=== PATIENT | female | born 1965 | race Caucasian/White ===

== ENCOUNTER 2018-06-12 19:49 | Inpatient (IN) | payer MEDICARE, MEDICAID ==
[~2018-06-12] VITALS: Ht 165.1 cm; Wt 99.5 kg
[2018-06-12] MEDS ORDERED: ALDACTONE25 MG PO (20:55)
[2018-06-12] MEDS ORDERED: LEVOTHYROXINE100 MCG PO (20:55)
[2018-06-12] MEDS ORDERED: LAMICTAL25 MG PO (20:57)
[2018-06-12] MEDS ORDERED: PRISTIQ50 MG PO (20:57)
[2018-06-12] MEDS ORDERED: BUMETANIDE0.5 MG PO (20:58)
[2018-06-12] MEDS ORDERED: MOBIC7.5 MG PO (20:59)
[2018-06-12] MEDS ORDERED: PROTONIX40 MG PO (21:01)
[2018-06-12] MEDS ORDERED: K-TAB10 MEQ PO (21:01)
[2018-06-12] MEDS ORDERED: CETIRIZINE HCL5 M1 PO (21:02)
[2018-06-12] MEDS ORDERED: CENTRUM SILVER1 EAC3 PO (21:03)
[2018-06-12] MEDS ORDERED: SENNA LAXATIVE8.6 MG PO (21:03)
[2018-06-12 21:09] VITALS: BP 95/70
--- NOTE | 2018-06-12 22:44 | NUR ---
PAGED SANG PLAYGROUND MONITOR [phone] . RETURNED PAGE [phone]. NO ORDERS GIVEN.
--- NOTE | 2018-06-12 23:50 | NUR ---
WAS TO TO CALL DR. CONTRERAS CELLPHONE PER HIS CALL SERVICE. NEW ORDERS GIVEN.
[2018-06-13 00:49] VITALS: BP 95/70; BMI 34.1
--- NOTE | 2018-06-13 02:58 | NUR ---
PATIENT RESTING COMFORTABLY IN BED. RESPIRATIONS ARE EVEN AND UNLABORED. SCD ARE ON. FAMILY AT BED. NO S/S OF DISTRESS. PATIENT C/O LEG CRAMPS. PATIENT GIVEN WARM PACKS. NO FURTHER COMPLAINTS. CALL LIGHT WITHIN REACH. WILL CPOC.
[2018-06-13 04:00] VITALS: BP 96/63
[2018-06-13 05:34] LABS: BASOPHILS 0.2 % (0-2); EOSINOPHILS 0.8 % (0-7); HEMATOCRIT 39.7 % (36.0-48.0); HEMOGLOBIN 12.9 g/dL (12-16); IMMATURE GRANULOCYTES 0.6 % (0-5); MCH 29.5 pg (26.0-34.0); MCHC 32.5 g/dL (31.0-37.0); MCV 90.8 fL (80.0-100.0); MEAN PLATELET VOLUME 11.4 fL (7.4-10.4); NEUTROPHILS 73.4 % (40-80); RBC 4.37 10x6/uL (4.00-5.40); RDW 18.2 % (11.5-14.5); WBC 14.8 10x3/uL (4.8-10.8)
[2018-06-13 05:52] LABS: INR 1.73 (0.85-1.17); PROTIME 19.6 SECONDS (11.6-15.0)
[2018-06-13 06:08] LABS: ALBUMIN 3.2 g/dL (3.4-5.0); ANION GAP 18.9 mmol/L (8-16); BILIRUBIN - TOTAL 1.25 mg/dL (0.2-1.3); CALCIUM 9.1 mg/dL (8.5-10.1); CARBON DIOXIDE 22.9 mmol/L (21.0-32.0); CREATININE - SERUM 1.6 mg/dL (0.6-1.3); POTASSIUM - SERUM 4.8 mmol/L (3.5-5.1); PROTEIN - SERUM 6.7 g/dL (6.4-8.2)
[2018-06-13 07:01] LABS: PLATELET COUNT 40 10x3/uL (130-400)
--- NOTE | 2018-06-13 08:59 | NUR ---
CALLED PHARMACY REQUESTING PTS MORNING MEDICATION THAT IS NOT FOUND IN [facility]. PT SITTING UP IN BED EATING BREAKFAST. SHIFT ASSESSMENT COMPLETED. PT IS A&O AND DENIES ANY CURRENT PAIN OR NEEDS. NOTIFIED PRIMARY ABOUT CRITICAL LAB VALUES AND THEY ARE AWARE. NO NEW ORDERS. WILL CTM.
[2018-06-13 09:00] VITALS: BP 98/70
--- NOTE | 2018-06-13 10:15 | NUR ---
PT INQUIRING ABOUT HOME MEDICATIONS. PAGED PRIMARY AND MADE SURE MED REC WAS COMPLETED AND DONE CORRECTLY. PT WAITING ON THEM TO REVIEW THEN MEDS CAN BE RESTARTED. NO CURRENT NEEDS. PT RESTING QUIETLY WITH FAMILY AT BEDSIDE. WILL CTM.
--- NOTE | 2018-06-13 13:04 | NUR ---
CLAMPED OFF LUNA TO DO URINE CULTURE VIA LUNA CATH PER ORDERS. PT SITTING UP IN BED EATING LUNCH. NO CURRENT NEEDS. WILL CTM.
[2018-06-13 14:05] LABS: MAGNESIUM - SERUM 2.1 mg/dL (1.8-2.4); T4 THYROXIN - FREE 1.23 ng/dL (0.76-1.46); THYROID STIMULATING HORMONE 9.96 uIU/mL (0.36-3.74)
[2018-06-13 14:06] LABS: CKMB 9.1 U/L (0.0-3.6); CREATINE KINASE 266 UL (21-215)
[2018-06-13 14:10] LABS: TROPONIN-I 0.063 ng/mL (0.000-0.060)
--- NOTE | 2018-06-13 14:23 | NUR ---
LAB CALLED ELEVATED TROPONIN. NOTIFIED PRIMARY AND THEY STATE TO MAKE SURE CARDIOLOGY IS AWARE AND CARDIOLOGY IS AND WILL SEE PT REGARDING CONSULT. ECHO HAS BEEN ORDERED AND DONE. PT RESTING QUIETLY. NO CURRENT NEEDS. WILL CTM.
[2018-06-13 14:42] VITALS: BMI 34.1
--- NOTE | 2018-06-13 14:44 | NUR ---
UA AND CULTURE COLLECTED USING PORT OFF LUNA PER ORDER USING CLEAN TECHNIQUE. SENT TO LAB ORDERED. PT TOOK HER FIRST DOSE OF LACTULOSE ORDERED AND SWALLOWED WITHOUT ANY DIFFICULTIES. NO CURRENT NEEDS. WILL CTM.
--- NOTE | 2018-06-13 15:01 | NUR ---
ORDER FOR ABDOMEN COMPLETE AT 1500 / PT NOT NPO PER FAMILY / TOLD NOT TO EAT OR DRINK AFTER MIDNIGHT / NURSE INFORMED STUDY WILL BE DONE AM. ERIN CHUNG
--- NOTE | 2018-06-13 15:05 | NUR ---
ULTRASOUND CALLS AND STATES ABDOMEN US WILL BE DONE IN THE AM SINCE PT HAS ALREADY EATEN LUNCH TODAY AND WILL NEED TO BE NPO AT LEAST 6HRS. PT VERBALIZED UNDERSTANDING AND WILL CTM.
[2018-06-13 15:34] LABS: APPEARANCE CLEAR (CLEAR); BILIRUBIN NEGATIVE (NEGATIVE); COLOR YELLOW (YELLOW); GLUCOSE NEGATIVE (NEGATIVE); KETONE NEGATIVE (NEGATIVE); NITRITE NEGATIVE (NEGATIVE); PROTEIN TRACE mg/dL (NEGATIVE); SPECIFIC GRAVITY 1.015 (1.005-1.020); UROBILINOGEN NORMAL (NORMAL)
[2018-06-13 15:35] LABS: BACTERIA MODERATE /hpf (NONE SEEN); EPITHELIAL CELLS 0-5 /hpf (0-5)
[2018-06-13 16:56] LABS: BASOPHILS 0.2 % (0-2); EOSINOPHILS 1.3 % (0-7); HEMATOCRIT 37.1 % (36.0-48.0); HEMOGLOBIN 12.3 g/dL (12-16); IMMATURE GRANULOCYTES 0.6 % (0-5); MCH 30.1 pg (26.0-34.0); MCHC 33.2 g/dL (31.0-37.0); MCV 90.9 fL (80.0-100.0); MEAN PLATELET VOLUME 11.4 fL (7.4-10.4); NEUTROPHILS 70.9 % (40-80); RBC 4.08 10x6/uL (4.00-5.40); RDW 18.7 % (11.5-14.5); WBC 15.1 10x3/uL (4.8-10.8)
--- NOTE | 2018-06-13 17:00 | NUR ---
PTS LUNA DOESNT APPEAR TO HAVE MUCH URINE EXPECTED WITH LASIX ETC. PT STATES SHE DOES FEEL THE URGE TO VOID SO I PERFORMED A BLADDER SCAN AND IT REVEALED 380ML. REMOVED OLD LUNA IT CLEARLY ISNT WORKING. BULB TIP FULLY INTACT. NEW 16FR LUNA INSERTED USING STERILE TECHNIQUE. IMMEDIATE RETURN OF 100ML NOTED UNSURE WHY THE REST DID NOT BUT WILL CONTINUE TO MONITER FOR RETENTION.
[2018-06-13 17:03] LABS: ANION GAP 16.2 mmol/L (8-16); CREATININE - SERUM 1.8 mg/dL (0.6-1.3); POTASSIUM - SERUM 4.2 mmol/L (3.5-5.1)
[2018-06-13 17:36] LABS: PLATELET COUNT 134 10x3/uL (130-400)
--- NOTE | 2018-06-13 18:37 | NUR ---
PT HAS VITAMIN K INFUSION DUE. PAGED PHARMACY AND THEY STATE THEY WILL BRING IT UP SOON.
[2018-06-13 18:44] VITALS: BP 104/74
[2018-06-13 20:00] VITALS: BP 95/63
--- NOTE | 2018-06-13 20:14 | NUR ---
RESUMING PATIENT CARE. PATIENT RESTING COMFORTABLY IN BED. RESPIRATIONS ARE EVEN AND UNLABORED. NO S/S OF DISTRESS. NO C/O PAIN. CALL LIGHT WITHIN REACH. SISTER AT BEDSIDE. LAMAR (SISTER) WAS EXTREMELY ANXIOUS. LAMAR IS STATING SHE DOESN'T UNDERSTANDING WHATS HAPPENING. SHE DOESN'T UNDERSTAND WHAT THE DOCTORS ARE TRYING TO EXPLAIN TO HER, BECAUSE THEY ARE USING BIG WORDS. POLoki IS WRITING A LIST OF QUESTIONS AND CONCERNS DOWN IN HOPES TO GET A BETTER EXPLANATION. WILL CPOC.
[2018-06-13 21:52] LABS: CKMB 8.8 U/L (0.0-3.6); CREATINE KINASE 230 UL (21-215); TROPONIN-I 0.053 ng/mL (0.000-0.060)
[2018-06-13 21:58] LABS: CKMB 8.8 U/L (0.0-3.6)
[2018-06-14] VITALS (7 sets, daily range): BP systolic 101–157; BP diastolic 53–79
[2018-06-14 04:37] LABS: BASOPHILS 0.1 % (0-2); EOSINOPHILS 1.1 % (0-7); HEMATOCRIT 37.5 % (36.0-48.0); HEMOGLOBIN 12.4 g/dL (12-16); IMMATURE GRANULOCYTES 0.5 % (0-5); LYMPHOCYTES 16.4 % (15-50); MCH 30.2 pg (26.0-34.0); MCHC 33.1 g/dL (31.0-37.0); MCV 91.5 fL (80.0-100.0); MONOCYTES 11.1 % (2-11); NEUTROPHILS 70.8 % (40-80); PLATELET COUNT 134 10x3/uL (130-400); WBC 13.9 10x3/uL (4.8-10.8)
[2018-06-14 04:45] LABS: INR 1.75 (0.85-1.17); PROTIME 19.8 SECONDS (11.6-15.0)
[2018-06-14 05:00] LABS: % SATURATION 14 % (15-55); IRON 42 ug/dl (35-150); TOTAL IRON BIND CAPACITY 298 ug/dl (260-445); UNSAT IRON BIND CAPACITY 256 ug/dl (150-375)
[2018-06-14 05:07] LABS: ALBUMIN 3.3 g/dL (3.4-5.0); ANION GAP 17.7 mmol/L (8-16); BILIRUBIN - TOTAL 1.17 mg/dL (0.2-1.3); CARBON DIOXIDE 24.2 mmol/L (21.0-32.0); CKMB 7.1 U/L (0.0-3.6); CREATININE - SERUM 1.6 mg/dL (0.6-1.3); POTASSIUM - SERUM 3.9 mmol/L (3.5-5.1); TROPONIN-I 0.046 ng/mL (0.000-0.060)
--- NOTE | 2018-06-14 05:50 | NUR ---
CRITICAL AMMONIA LEVEL OF 98 CALLED TO FLOOR . PHYSICIAN NOT NOTIFIED HE IS AWARE AND TREATING CONDITION.
--- NOTE | 2018-06-14 08:47 | NUR ---
AM ROUNDS COMPLETED. INTRODUCED MYSELF TO PT PRIMARY RN FOR TODAYS SHIFT. PT IS A&O SITTING UP IN BED. PT IS VERY NAUSEATED SO I PROVIDED HER WITH PIV ZOFRAN AND A COLD RAG TO HER HEAD. PT VOICED THANKS. PTS AMMONIA IS UP TO 98 TODAY. NOTIFIED PRIMARY AND THEY WILL ADDRESS IT. NO CHANGE IN LOC NOTED WITH THE INCREASE HOWEVER PT IS MENTALLY CHALLENGED SO ITS SOMEWHAT IMPAIRED ASSESSMENT. I WAS GOING TO PROVIDE PT WITH MORNING MEDICATIONS SO SHE CAN CONTINUE HER LACTULOSE EVEN THOUGH SHE IS NPO FOR CARDIAC CATH HOWEVER R/T THE NAUSEA WILL HOLD OFF FOR NOW. PT HAS CONSENTS OBTAINED AND IN CHART HOWEVER NIGHTSHIFT DID NOT DO PREP OR BATH SO I WILL NOTIFY MY COURSE DEVELOPER AND MAKE SURE IT GETS DONE PRIOR TO HEART CATH. PT VERBALIZED UNDERSTANDING AND IS RESTING QUIETLY AT THIS TIME. LUNA CATHETER DRAINING CLEAR YELLOW URINE TO GRAVITY OFF R.SIDE OF BED, STAT LOCK SECURED TO R.INNER THIGH. SISTER AT BEDSIDE. NO CURRENT NEEDS. CL IN REACH, BED IN LOWEST, SIDE RAILS X2 AND BUILT IN BED ALARM ON. WILL CTM.
--- NOTE | 2018-06-14 10:46 | NUR ---
AT BEDSIDE AND ROUNDING STATING THAT THE HEART CATH IS CANCELLED R/T HER COAGULATION ISSUES AND LIVER PROBLEMS RIGHT NOW. IF HEART CATH IS INDICATED NEEDED CAN PERFORM AT A LATER TIME. PT VOICED UNDERSTANDING AND I PROVIDED HER WITH HER MEDICATIONS ORDERED. DIET TRAY HAS BEEN ORDERED. PT IS SLIGHTLY DELAYED SO I WILL UPDATE SISTER HER POA WHEN SHE RETURNS. NO CURRENT NEEDS. WILL CTM.
--- NOTE | 2018-06-14 12:39 | NUR ---
Nutrition follow-up: Diet: low sodium NPO now for heart cath PO intake has been ~70% average of meals Labs reviewed +BM Wt: 203# RDN following.
--- NOTE | 2018-06-14 17:45 | NUR ---
LACTULOSE ENEMA PERFORMED ORDERED. PT IS CURRENTLY LYING ON HER LEFT SIDE AND IS GOING TO TRY AND HOLD IT IN FOR 30-45MINS. SISTER AT BEDSIDE VISITING. PT IS VERY MUCH AWAKE NOW AND STATES SHE IS FEELING ALRIGHT JUST BEEN "DROWSY" TODAY. NO CURRENT NEEDS WILL CTM.
--- NOTE | 2018-06-14 19:33 | NUR ---
PT FINALLY HAD RESULTS FROM ENEMA AND HAD MODERATE AMOUNT OF LOOSE STOOL BROWN IN COLOR. COMPLETE BED CHANGE PROVIDED AND NOTICED SLIGHTLY REDDENED BOTTOM, DISCUSSED WITH PRIMARY AND WILL HAVE CALMOSEPTINE ORDERED TO HELP PREVENT BREAKDOWN. PT SITTING UP IN BED FINALLY ATE A LITTLE BIT OF SOMETHING. DENIES ANY CURRENT PAIN OR NEEDS. WILL PASS ON IN REPORT.
--- NOTE | 2018-06-15 02:00 | NUR ---
LACTULOSE ENEMA ADMINISTERED. PATIENT HAD MODERATE RESULTS.
[2018-06-15 04:00] VITALS: BP 97/66
[2018-06-15 04:09] LABS: INR 1.68 (0.85-1.17); PROTIME 19.2 SECONDS (11.6-15.0)
[2018-06-15 04:24] LABS: BASOPHILS 0.1 % (0-2); HEMATOCRIT 35.8 % (36.0-48.0); HEMOGLOBIN 11.5 g/dL (12-16); IMMATURE GRANULOCYTES 0.4 % (0-5); MCH 29.7 pg (26.0-34.0); MCHC 32.1 g/dL (31.0-37.0); MCV 92.5 fL (80.0-100.0); MEAN PLATELET VOLUME 11.2 fL (7.4-10.4); MONOCYTES 11.1 % (2-11); NEUTROPHILS 72.4 % (40-80); PLATELET COUNT 118 10x3/uL (130-400); RBC 3.87 10x6/uL (4.00-5.40); RDW 19.3 % (11.5-14.5); WBC 13.7 10x3/uL (4.8-10.8)
[2018-06-15 04:26] LABS: ANION GAP 15.5 mmol/L (8-16); CALCIUM 8.4 mg/dL (8.5-10.1); CARBON DIOXIDE 24.2 mmol/L (21.0-32.0); CREATININE - SERUM 1.4 mg/dL (0.6-1.3); POTASSIUM - SERUM 3.7 mmol/L (3.5-5.1); PROTEIN - SERUM 6.6 g/dL (6.4-8.2)
--- NOTE | 2018-06-15 04:55 | NUR ---
CRITICAL AMMONIA LEVEL OF 55 CALLED TO UNIT. PHYSICAN WAS NOT NOTIFIED HE IS AWARE ELEVATED AMMONIA LEVEL AND IS TREATING.
--- NOTE | 2018-06-15 07:32 | NUR ---
RESTING QUIETLY NAD NOTED
[2018-06-15 08:19] LABS: HEPATITIS C ANTIBODY <0.1 S/CO RAT (0.0-0.9)
[2018-06-15 09:26] VITALS: BP 113/85
[2018-06-15 10:18] LABS: ALPHA FETOPROTEIN -(TUMOR MRK) 2.4 ng/mL (0.0-8.3)
[2018-06-15 11:17] LABS: ANA REFLEX - DIRECT Negative (Negative)
[2018-06-15 19:59] VITALS: BP 91/60
--- NOTE | 2018-06-15 20:13 | NUR ---
RESUMING PATIENT CARE. PATIENT IS RESTING COMFORTABLY IN BED. RESPIRATIONS ARE EVEN AND UNLABORED. PATIENT VERBALIZED NO NEEDS AT THIS TIME. PATIENT BOARD UPDATED. CALL LIGHT WITHIN REACH. FAMILY AT BEDSIDE. WILL CPOC
[2018-06-15 23:45] VITALS: BP 124/78
--- NOTE | 2018-06-16 01:41 | NUR ---
PATIENT CALLED VENDING MANAGER LIGHT, PATIENT NEEDED TO BE CHANGED. PATIENT HAD A LARGE BM.
[2018-06-16 03:55] VITALS: BP 99/72
--- NOTE | 2018-06-16 04:23 | NUR ---
PATIENT APPEARS TO BE SLEEPING. RESPIRATIONS ARE EVEN AND UNLABORED. NO S/S OF DISTRESS. CALL LIGHT WITHIN REACH. FAMILY AT BEDSIDE. WILL CPOC.
[2018-06-16 04:48] LABS: BASOPHILS 0.1 % (0-2); EOSINOPHILS 2.5 % (0-7); HEMATOCRIT 36.4 % (36.0-48.0); HEMOGLOBIN 11.9 g/dL (12-16); IMMATURE GRANULOCYTES 0.3 % (0-5); LYMPHOCYTES 11.7 % (15-50); MCH 30.3 pg (26.0-34.0); MCHC 32.7 g/dL (31.0-37.0); MCV 92.6 fL (80.0-100.0); MEAN PLATELET VOLUME 10.5 fL (7.4-10.4); MONOCYTES 9.2 % (2-11); NEUTROPHILS 76.2 % (40-80); PLATELET COUNT 108 10x3/uL (130-400); RBC 3.93 10x6/uL (4.00-5.40); RDW 19.3 % (11.5-14.5); WBC 11.5 10x3/uL (4.8-10.8)
[2018-06-16 05:05] LABS: BILIRUBIN - TOTAL 1.2 mg/dL (0.2-1.3); CALCIUM 8.6 mg/dL (8.5-10.1); CREATININE - SERUM 1.1 mg/dL (0.6-1.3); INR 1.55 (0.85-1.17); PROTEIN - SERUM 6.6 g/dL (6.4-8.2)
[2018-06-16 05:12] LABS: ANION GAP 11.6 mmol/L (8-16); CARBON DIOXIDE 31.4 mmol/L (21.0-32.0)
--- NOTE | 2018-06-16 07:31 | NUR ---
REPORT RECIEVED. WILL CONTINUE WITH POC. PT CURRENTLY LYING SUPINE. CALL LIGHT W/I REACH. FAMILY AT BEDSIDE. SISTER AT BEDSIDE. PT IS CURRENTLY BEING CLEANED BY ROUTE SPECIALIST WHERE PT HAD SMALL BM. LUNA IN PLACE. RR EVEN AND UNLABORED ON RA. R.AC PIV IS SALINE LOCKED. PT IS AA BUT MENTALLY DELAYED AND BEDFAST. WILL CTM.
[2018-06-16 08:15] VITALS: BP 93/59
[2018-06-16] MEDS ORDERED: COREG6.25 MG PO (09:51)
[2018-06-16] MEDS ORDERED: ALBUTEROL2.5 MG/3 M INH (09:52)
--- NOTE | 2018-06-16 10:00 | NUR ---
RESTS WITH EYES CLOSED. CALL LIGHT IN REACH. WILL MONITOR NEEDS.
[2018-06-16 12:51] VITALS: BP 90/53
--- NOTE | 2018-06-16 12:55 | NUR ---
SPOKE WITH ABOUT STARTING DOBUTREX DRIP. RECIEVED ORDERS FOR DRIP @5MCG/KG/MIN. PLACED ORDER. NOTIFIED.
[2018-06-16 16:14] VITALS: BP 107/60
--- NOTE | 2018-06-16 19:20 | NUR ---
RECEIVED REPORT, WILL ASSUME CARE OF PT, DENIES ANY NEEDS, SISTER AT BEDSIDE, BED IS LOW, SRX2, CALL LIGHT IN REACH, WILL CONTINUE PLAN OF CARE
[2018-06-16 19:55] VITALS: BP 97/53
[2018-06-16 23:45] VITALS: BP 99/56
--- NOTE | 2018-06-17 02:08 | NUR ---
PT IS SLEEPING, SISTER AT BEDSIDE, BED IS LOW, SRX2, CALL LIGHT IN REACH, WILL CONTINUE PLAN OF CARE
--- NOTE | 2018-06-17 03:30 | NUR ---
RESTING IN BED WITH NO DISTRESS. RESPS NONLABORED. FAMILY X 1 AT BEDSIDE. MONITOR AND CPOC.
[2018-06-17 03:55] VITALS: BP 93/54
[2018-06-17 05:43] LABS: BASOPHILS 0.1 % (0-2); EOSINOPHILS 1.6 % (0-7); HEMOGLOBIN 11.3 g/dL (12-16); IMMATURE GRANULOCYTES 0.1 % (0-5); LYMPHOCYTES 11.6 % (15-50); MCH 29.5 pg (26.0-34.0); MCHC 32.3 g/dL (31.0-37.0); MCV 91.4 fL (80.0-100.0); MEAN PLATELET VOLUME 10.4 fL (7.4-10.4); MONOCYTES 7.7 % (2-11); NEUTROPHILS 78.9 % (40-80); PLATELET COUNT 109 10x3/uL (130-400); RBC 3.83 10x6/uL (4.00-5.40); RDW 19.3 % (11.5-14.5); WBC 10.1 10x3/uL (4.8-10.8)
[2018-06-17 06:20] LABS: ALBUMIN 2.8 g/dL (3.4-5.0); ANION GAP 13.6 mmol/L (8-16); BILIRUBIN - TOTAL 1.25 mg/dL (0.2-1.3); CALCIUM 8.4 mg/dL (8.5-10.1); CARBON DIOXIDE 28.4 mmol/L (21.0-32.0); CREATININE - SERUM 1.3 mg/dL (0.6-1.3); PROTEIN - SERUM 6.3 g/dL (6.4-8.2)
[2018-06-17 06:25] LABS: INR 1.45 (0.85-1.17); PROTIME 17.1 SECONDS (11.6-15.0)
--- NOTE | 2018-06-17 07:24 | NUR ---
REPORT RECIEVED. WILL CONTINUE WITH POC. PT CURRENTLY LYING SUPINE. CALL LIGHT W/I REACH. FAMILY AT BEDSIDE. RR EVEN AND UNLABORED ON RA. PT REPORTS OF DRY HEAVING. WILL ADMINISTER ZOFRAN. DOBUTAMINE INFUSING @5MCG/KG/MIN VIA R.UPPER ARM PIV. PT DENIES ANY FURTHER NEEDS. WILL CTM.
--- NOTE | 2018-06-17 09:24 | NUR ---
AM MEDICATIONS ADMINISTERED. PT DENIES ANY NEEDS. WILL CTM.
[2018-06-17 11:34] VITALS: BP 110/78
--- NOTE | 2018-06-17 14:30 | NUR ---
POTASSIUM TREATED AND REDRAW ORDER PLACED FOR 190
[2018-06-17 16:07] LABS: MITOCHONDRIAL ANTIBODY 3.5 Units (0.0-20.0); SMOOTH MUSCLE ABS (ACTIN) 11 Units (0-19)
--- NOTE | 2018-06-17 16:46 | NUR ---
PT LYING ON RIGHT SIDE. CALL LIGHT W/I REACH. FAMILY AT BEDSIDE. RR EVEN AND UNLABORED ON 2L 02. DOBUTAMINE INFUSING @14.3ML/HR VIA R.UPPER ARM PIV. PT DENIES ANY NEEDS AT THIS TIME. WILL CTM.
[2018-06-17 17:07] VITALS: BP 107/65
--- NOTE | 2018-06-17 18:28 | NUR ---
PT LYING SEMI FOWLERS. CALL LIGHT W/I REACH. DOBUTAMINE INFUSING @14.3ML/HR VIA R.UPPER ARM PIV. RR EVEN AND UNLABORED ON RA. PT DENIES ANY NEEDS. WILL PASS REPORT AND CONTINUE WITH POC.
--- NOTE | 2018-06-17 19:30 | NUR ---
RECEIVED REPORT, WILL ASSUME CARE OF PT, DENIES ANY NEEDS AT THIS TIME, SISTER AT BEDSIDE, BED IS LOW, SRX2, CALL LIGHT IN REACH, WILL CONTINUE PLAN OF CARE
[2018-06-17 19:59] VITALS: BP 104/73
--- NOTE | 2018-06-17 21:15 | NUR ---
K+ 3.5, FOLLOW EP, GAVE 40MEQ OF K+
[2018-06-17 23:45] VITALS: BP 103/74
--- NOTE | 2018-06-18 03:38 | NUR ---
RESTING IN BED WITH NO DISTRESS. MONITOR AND CPOC. CALL LIGHT IN REACH.
[2018-06-18 03:45] VITALS: BP 108/75
[2018-06-18 05:58] LABS: BASOPHILS 0.5 % (0-2); EOSINOPHILS 2.3 % (0-7); HEMATOCRIT 36.1 % (36.0-48.0); HEMOGLOBIN 11.5 g/dL (12-16); IMMATURE GRANULOCYTES 0.3 % (0-5); LYMPHOCYTES 11.4 % (15-50); MCH 29.3 pg (26.0-34.0); MCHC 31.9 g/dL (31.0-37.0); MCV 91.9 fL (80.0-100.0); MEAN PLATELET VOLUME 11.8 fL (7.4-10.4); MONOCYTES 7.8 % (2-11); NEUTROPHILS 77.7 % (40-80); RBC 3.93 10x6/uL (4.00-5.40); RDW 19.2 % (11.5-14.5); WBC 11.1 10x3/uL (4.8-10.8)
[2018-06-18 06:06] LABS: INR 1.29 (0.85-1.17); PROTIME 15.5 SECONDS (11.6-15.0)
[2018-06-18 06:18] LABS: PLATELET COUNT 173 10x3/uL (130-400)
[2018-06-18 06:27] LABS: BILIRUBIN - TOTAL 1.37 mg/dL (0.2-1.3); CALCIUM 8.4 mg/dL (8.5-10.1); CARBON DIOXIDE 28.9 mmol/L (21.0-32.0); CREATININE - SERUM 1.1 mg/dL (0.6-1.3); PROTEIN - SERUM 6.4 g/dL (6.4-8.2)
[2018-06-18 06:28] LABS: ANION GAP 15.5 mmol/L (8-16); POTASSIUM - SERUM 4.4 mmol/L (3.5-5.1)
--- NOTE | 2018-06-18 06:46 | NUR ---
PT C/O WARM ALL OVER AND SOB..HR 107 SPO2 97 LCTA SKIN WARM AND DRY TEMP 97.8....REPORTED TO ONCOMING NURSE
--- NOTE | 2018-06-18 07:14 | NUR ---
REPORT RECIEVED. WILL CONTINUE WITH POC. PT CURRENTLY LYING SEMI FOWLERS. CALL LIGHT W/I REACH. DOBUTAMINE INFUSING @14.3ML/HR AND NS INFUSING @15ML/HR VIA R.UPPER ARM PIV. RR EVEN AND UNLABORED ON RA. PT CURRENTLY UNDERGOING RESP TRX. FAMILY AT BEDSIDE. PT DENIES ANY NEEDS. WILL CTM.
[2018-06-18 08:04] LABS: PLATELET ESTIMATE DECREASED
[2018-06-18 08:41] VITALS: BP 116/80
--- NOTE | 2018-06-18 09:32 | NUR ---
RESTING QUIETLY NAD NOTED
--- NOTE | 2018-06-18 14:07 | NUR ---
R/T PT BEING SUCH A HARD STICK AND THE NEED FOR DOBUTAMINE DRIP AND ABX, RECIEVED ORDERS FOR PICC OR MIDLINE PLACEMENT. ORDER WITH VASCULAR ACCESS PLACED.
--- NOTE | 2018-06-18 17:39 | NUR ---
ASSISTED WITH CVL PLACEMENT. RECEIVED VERBAL ORDER FOR CHEST XRAY AND PLACED ORDER. FLUSHED EACH PORT WITH 10ML NS AND CRIMPED EACH PORT. RESTARTED INFUSION OF DOBUTAMINE @14.3ML/HR AND NS @30ML/HR VIA BROWN PORT LUMEN. PT CLEANED AND LYING SEMI FOWLERS. CALL LIGHT W/I REACH. PT IS AAO AND DENIES ANY NEEDS. WILL CTM.
[2018-06-18 19:00] VITALS: BP 94/58
--- NOTE | 2018-06-18 19:50 | NUR ---
RECEIVED REPORT, WILL ASSUME CARE OF PT, DENIES ANY NEEDS AT THIS TIME, BED IS LOW, SRX2, SISTER AT BEDSIDE, CALL LIGHT IN REACH, WILL CONTINUE PLAN OF CARE
[2018-06-18 21:04] VITALS: Ht 165.1 cm; Wt 99.5 kg
[2018-06-19 00:23] VITALS: BP 110/67
--- NOTE | 2018-06-19 04:14 | NUR ---
OUTFITTER CABIN AT BEDSIDE TO OBTAIN VITALS, CALL LIGHT IN REACH. WILL CONTINUE WITH PLAN OF CARE.
[2018-06-19 05:03] VITALS: BP 111/68
[2018-06-19 06:48] LABS: BASOPHILS 0.2 % (0-2); EOSINOPHILS 2.6 % (0-7); HEMATOCRIT 33.9 % (36.0-48.0); HEMOGLOBIN 10.9 g/dL (12-16); IMMATURE GRANULOCYTES 0.3 % (0-5); LYMPHOCYTES 14.9 % (15-50); MCH 29.7 pg (26.0-34.0); MCHC 32.2 g/dL (31.0-37.0); MCV 92.4 fL (80.0-100.0); MEAN PLATELET VOLUME 10.5 fL (7.4-10.4); RBC 3.67 10x6/uL (4.00-5.40); RDW 19.3 % (11.5-14.5); WBC 9.8 10x3/uL (4.8-10.8)
[2018-06-19 06:49] LABS: PLATELET COUNT 137 10x3/uL (130-400)
[2018-06-19 07:16] LABS: BILIRUBIN - TOTAL 1.26 mg/dL (0.2-1.3); CALCIUM 8.8 mg/dL (8.5-10.1); CARBON DIOXIDE 32.5 mmol/L (21.0-32.0); CREATININE - SERUM 1.2 mg/dL (0.6-1.3); MAGNESIUM - SERUM 1.9 mg/dL (1.8-2.4); PROTEIN - SERUM 6.9 g/dL (6.4-8.2)
[2018-06-19 07:23] LABS: ANION GAP 13.1 mmol/L (8-16); POTASSIUM - SERUM 3.6 mmol/L (3.5-5.1)
--- NOTE | 2018-06-19 07:30 | NUR ---
RECEIVED A/A/OX4. DENIES ANY PAIN OR DISCOMFORT AT THIS TIME. ASSESSMENT COMPLETED AND NO REQUESTS VOICED. BED IN LOW POSITION, SIDERAILS UP X 2 AND CALL LIGHT IN REACH.
--- NOTE | 2018-06-19 07:58 | NUR ---
IV PATENT. CALL LIGHT IN REACH. FAMILY MEMBER AT BS. WILL MONITOR NEEDS.
[2018-06-19 08:35] VITALS: BP 107/65
--- NOTE | 2018-06-19 11:44 | OP ---
PATIENT NAME: SHANELLE DELONG MEDICAL RECORD: [id number] :69 LOCATION:D.M2 D.2112 ADMISSION DATE:06/12/18 SURGEON: TALON ROWLEY MD DATE OF OPERATION: 06/18/2018 PREOPERATIVE DIAGNOSES: 1. Hepatitis. 2. In need of IV access for IV medications: 3. Hepatic encephalopathy. POSTOPERATIVE DIAGNOSES: 1. Hepatitis. 2. In need of IV access for IV medications. 3. Hepatic encephalopathy. PROCEDURES: Right groin 20 cm triple lumen central venous catheter placement. SURGEON: Talon Rowley MD BEARING PRESS MACHINE OPERATOR: None. BLOOD LOSS: 25 cc. ANESTHESIA: Local. COMPLICATIONS: None. The entire procedure was performed in the presence of a nurse. The risks, possible complications and alternatives to the procedure were explained to the patient. She elects to proceed. The discussion specifically included, but was not limited to, bleeding requiring emergency reoperation, infection, great vessel injury, pneumothorax. OPERATIVE COURSE: The patient was seen in her bill bed. She was positioned in the Trendelenburg position. The right neck was interrogated with the ultrasound. The right internal jugular vein was small. On the left side, the left internal jugular vein was large. I sterilely prepped the left neck. I identified the left internal jugular vein. A local anesthetic was used to infiltrate the skin and subcutaneous tissues overlying the internal jugular vein. I percutaneously accessed the internal jugular vein in an antegrade fashion. There was pulsatile blood flow, however. I accessed it several times and still there was pulsatile blood flow. I then performed an access subclavian vein utilizing a supraclavicular antegrade approach and here again there was pulsatile blood flow, but the blood was dark. I abandoned these approaches. I then placed the patient in reverse Trendelenburg. The right groin was sterilely prepped and draped. A local anesthetic was used to infiltrate the skin and subcutaneous tissue overlying the right common femoral vein. I percutaneously accessed the right common femoral vein in an antegrade fashion. A guidewire passed easily. I then exchanged the guidewire out for an Angiocath and here again there was pulsatile blood flow, but it was dark. I then readvanced the wire. I then accessed the nearby common femoral artery and the pulsatile blood flow was quite dramatic and the blood was red. I then removed the needle. It is my belief that the patient likely has tricuspid insufficiency and this is leading to pulsatility in the venous system. OPERATIVE REPORT [id number] SHANELLE DELONG A small skin jamel was accomplished. A vessel dilator was used to dilate the subcutaneous tract. A 20 cm triple lumen central venous catheter was inserted to the hub. It was sutured in place times 3. All lumens flushed easily and aspirated dark, nonpulsatile blood. A stat portable chest x-ray is pending to rule out a pneumothorax. The site was sterilely dressed. TRANSINT:[id number] Voice Confirmation ID: [id number] DOCUMENT ID: [id number] TALON ROWLEY MD at 1144 CC: [id number] DICTATION DATE: 06/18/182109 SHOW CARD LETTERER: 06/18/182146 ADM IN [facility] [address] [place] [address]
[2018-06-19 13:20] VITALS: BP 100/54
--- NOTE | 2018-06-19 14:15 | NUR ---
DRESSING TO RIGHT GROIN TRIPLE LUMEN CHANGED. TOLERATED WELL.
--- NOTE | 2018-06-19 19:40 | NUR ---
INITIAL ROUNDS COMPLETED. PT COMPLAINT OF LEG CRAMPS. PT APPEARS MODERATELY ANXIOUS. OFFERE 02, PT DECLINED. PRACTICED DEEP BREATHING AND PT REQUESTED PRESCRIBED ANTIANXIETY MEDICATION. ALSO EDUCATED PT THAT LEG CRAMPS WERE DUE TO HER ELEVATED LIVER ENZYMES. PT VERBALIZED UNDERSTANDING. FAMILY AT BEDSIDE. A/0 X4. WILL CONTINUE TO FOLLOW POC AND MONITOR NEEDS. CALL LIGHT IN REACH AND SR UP X2. LUNA DRAINING DARK YELLOW URINE. IV PATENT.
[2018-06-19 19:45] VITALS: BP 102/63
--- NOTE | 2018-06-19 22:15 | NUR ---
PT RESTING IN BED WITH EYES CLOSED, APPEARS MUCH MORE CALM. FAMILY AT BEDSIDE. RR EVEN AND UL, NO S/S OF DISTRESS. CL IN REACH AND SR UP X2. WILL CONTINUE TO OBSERVE.
[2018-06-19 23:30] VITALS: BP 105/70
[2018-06-20 04:05] VITALS: BP 92/65
[2018-06-20 07:21] LABS: BASOPHILS 0.4 % (0-2); EOSINOPHILS 3.5 % (0-7); HEMATOCRIT 33.1 % (36.0-48.0); HEMOGLOBIN 10.7 g/dL (12-16); IMMATURE GRANULOCYTES 0.2 % (0-5); LYMPHOCYTES 15.6 % (15-50); MCH 29.7 pg (26.0-34.0); MCHC 32.3 g/dL (31.0-37.0); MCV 91.9 fL (80.0-100.0); MEAN PLATELET VOLUME 10.3 fL (7.4-10.4); MONOCYTES 10.8 % (2-11); NEUTROPHILS 69.5 % (40-80); PLATELET COUNT 150 10x3/uL (130-400); WBC 8.5 10x3/uL (4.8-10.8)
[2018-06-20 07:57] LABS: ANION GAP 13.4 mmol/L (8-16); BILIRUBIN - TOTAL 1.48 mg/dL (0.2-1.3); CREATININE - SERUM 1.1 mg/dL (0.6-1.3); MAGNESIUM - SERUM 1.7 mg/dL (1.8-2.4); POTASSIUM - SERUM 3.4 mmol/L (3.5-5.1); PROTEIN - SERUM 6.9 g/dL (6.4-8.2)
--- NOTE | 2018-06-20 13:24 | NUR ---
DRSG CHANGED TO CVL SITE RIGHT GROIN. TELEMETRY ST. RESP UL ON 02 2L NC. CALL LIGHT IN REACH. WILL CONT. PLAN OF CARE.
--- NOTE | 2018-06-20 13:48 | NUR ---
UP AMBULATING HALLWAY WITH PT ASSIST.
[2018-06-20 14:12] VITALS: BP 122/81
--- NOTE | 2018-06-20 15:21 | NUR ---
Spoke with pt and reviewed chart Regular diet with 67% average po intake BM yesterday RD following
[2018-06-20 19:00] VITALS: BP 109/68
--- NOTE | 2018-06-20 19:05 | NUR ---
INITIAL ROUNDS COMPLETED. PT DIFFICULT TO AROUSE TO VOICE, BUT AROUSES TO STIMULI. VSS STABLE, BP 109/68, HR 116. AFTER 5 MINUTES, PT MORE AWAKE AND ORIENTED. WILL CONTINUE TO ASSES. NO S/S OF DISTRESS, RR EVEN AND UL. O2 ON AT 2L VIA NC. SISTER AT BEDSIDE. CALL LIGHT IN REACH, SR UP X2. LUNA DRAINIG DARK YELLOW URINE. NS RUNNING KVO VIA R GROIN CENTRAL LINE. NO FURTHER NEEDS NOTED AT THIS TIME.
--- NOTE | 2018-06-20 19:35 | NUR ---
PT SITTING UP IN BED EATING ORANGES. SISTER AT BEDSIDE. A/O X4. TAKES EVENING MEDICATIONS EASILY. RR EVEN AND UL, NO S/S OF DISTRESS. NOTABLE PROGRESS IN MOOD NOTED. SEEMS LESS ANXIOUS THAN EARLIER. WILL CONTINUE TO ASSESS AND FOLLOW POC. CALL LIGHT IN REACH, SR UP X2.
[2018-06-21 00:44] VITALS: BP 105/67
--- NOTE | 2018-06-21 02:42 | NUR ---
TO PT ROOM VIA CALL LIGHT. TURNED PT TO R SIDE. PT HAD SMALL FORMED STOOL. CLEANED PT AND PLACED NEW PAD. PT HAS DENIES FURTHER NEEDS. WILL CONTINUE TO ASSESS. SISTER ASLEEP AT BEDSIDE. CALL LIGHT IN REACH, SR UP X2.
--- NOTE | 2018-06-21 03:07 | NUR ---
TO PT ROOM VIA PULP MIXER. MONITOR NOTED 19 RUNS OF V TACH. PT A/O, RR SHALLOW AND FAST, BUT EVEN. NO S/S OF DISTRESS. PT STATES SHE IS "A LITTLE OUT OF BREATH." O2 ON 2L VIA NC. PT IS A MOUTH BREATHER. EDUCATED ON DEEP BREATHING EXERCISE. DEMONSTRATED DEEP BREATHS IN THROUGH NOSE AND OUT THROUGH MOUTH. PT STATES FEELING MORE RELAXED. PT STABLE, VSS STABLE. WILL CONTINUE TO ASSESS. CALL LIGHT IN REACH, SR UP X2. SISTER AT BEDSIDE.
[2018-06-21 04:34] VITALS: BP 103/60
[2018-06-21 05:44] LABS: BASOPHILS 0.5 % (0-2); EOSINOPHILS 3.5 % (0-7); HEMATOCRIT 34.2 % (36.0-48.0); HEMOGLOBIN 11.2 g/dL (12-16); IMMATURE GRANULOCYTES 0.6 % (0-5); LYMPHOCYTES 15.2 % (15-50); MCH 29.6 pg (26.0-34.0); MCHC 32.7 g/dL (31.0-37.0); MCV 90.5 fL (80.0-100.0); MEAN PLATELET VOLUME 10.5 fL (7.4-10.4); NEUTROPHILS 69.2 % (40-80); PLATELET COUNT 156 10x3/uL (130-400); RBC 3.78 10x6/uL (4.00-5.40); RDW 18.7 % (11.5-14.5); WBC 10.6 10x3/uL (4.8-10.8)
[2018-06-21 05:53] LABS: ANION GAP 13.8 mmol/L (8-16); BILIRUBIN - TOTAL 0.98 mg/dL (0.2-1.3); CARBON DIOXIDE 31.3 mmol/L (21.0-32.0); CREATININE - SERUM 1.2 mg/dL (0.6-1.3); MAGNESIUM - SERUM 1.8 mg/dL (1.8-2.4); POTASSIUM - SERUM 4.1 mmol/L (3.5-5.1); PROTEIN - SERUM 6.6 g/dL (6.4-8.2)
[2018-06-21 08:48] VITALS: BP 110/69
[2018-06-21 12:00] VITALS: BP 112/56
--- NOTE | 2018-06-21 12:51 | NUR ---
ALERT AND ORIENTED X4. SISTER AT BEDSIDE. PHYSICAL THERAPY ASSIST AMBULATING IN FORBES. SINUS TACH 118 WITH PVCs ON TELEMETRY. DENIES ANY NEEDS. ANXIOUSLY WAITING FOR DISCHARGE ORDERS.
[2018-06-21] MEDS ORDERED: ALDACTONE25 MG PO (14:22)
[2018-06-21] MEDS ORDERED: ATIVAN PO (14:22)
[2018-06-21] MEDS ORDERED: XIFAXAN550 MG PO (14:22)
[2018-06-21] MEDS ORDERED: CHRONULAC30 ML PO (14:22)
--- NOTE | 2018-06-21 15:51 | MORECARE ---
CASE MANAGEMENT DISCHARGE SUMMARY PATIENT: SHANELLE DELONG UNIT: [id number] ADM DATE: 06/12/18 AGE: 52 : 69 SEX: F ROOM/BED: D.[facility]2 AUTHOR: KRISTEL HUGGINS PHYSICIAN: REFERRING PHYSICIAN: JUAN ALBERTO CONTRERAS MD DATE OF SERVICE: 06/21/18 Discharge Plan Patient Name: SHANELLE DELONG Facility: [facility]:[place] : 1965 Planned Disposition: Home with Home Health Anticipated Discharge Date: 06/21/18 Discharge Date: Expected LOS: 9 Initial Reviewer: [email or web address] Initial Review Date: 06/21/2018 Generated: 06/21/18 4:51 pm DCPIA - Discharge Planning Initial Assessment Updated by [email or web address]: Octavio French on 06/21/18 3:50 pm * Is the patient Alert and Oriented? Yes * How many steps to enter\exit or inside your home? 5 W/RAIL * PCP DR. CRANE * Pharmacy [facility] * Preadmission Environment Home with Family * ADLs Independent * Equipment Nebulizer Rolling Walker * Other Equipment NO MEDICAL EQUIPMENT PROVIDER PREFERENCE * List name and contact numbers for known caregivers / representatives who currently or will assist patient after discharge: TOM SCHMIDT, SISTER/POA, * Verbal permission to speak to the caregivers and representatives has been obtained from the patient. Yes * Community resources currently utilized None * Please name any agencies selected above. NONE * Additional services required to return to the preadmission environment? Yes * Can the patient safely return to the preadmission environment? Yes * Has this patient been hospitalized within the prior 30 days at any hospital? No External Providers External Provider: [facility] Next Contact Date: 06/21/2018 Service Request Date: Service Type: Resolution: Reviewer: Comments: Patient Name: SHANELLE DELONG Page [phone] at 1551 All edits/amendments must be made on the electronic document DICTATION DATE: 06/21/18 1551 FIELD INSTALLER: DAMIR 06/21/18 1551 RPT#: [id number] DC DATE: STATUS: ADM IN [facility] [address] [place] [address] END OF REPORT
--- NOTE | 2018-06-21 16:05 | MORECARE ---
CASE MANAGEMENT DISCHARGE SUMMARY PATIENT: SHANELLE DELONG UNIT: [id number] ADM DATE: 06/12/18 AGE: 52 : 69 SEX: F ROOM/BED: D.4162 AUTHOR: BHAVNA,DOC PHYSICIAN: REFERRING PHYSICIAN: JUAN ALBERTO CONTRERAS MD DATE OF SERVICE: 06/21/18 Discharge Plan Patient Name: SHANELLE DELONG Facility: [facility]:[place] : 1965 Planned Disposition: Home with Home Health Anticipated Discharge Date: 06/21/18 Discharge Date: Expected LOS: 9 Initial Reviewer: [email or web address] Initial Review Date: 06/21/2018 Generated: 06/21/18 5:05 pm Comments DCP- Discharge Planning Updated by [email or web address]: Octavio Mayes on 06/21/18 2:[address] Patient Name: SHANELLE DELONG Admission Status: Elective Accout number: [id number] Admission Date: 06-12-2018 : 1965 Admission Diagnosis:INFLAMMATORY LIVER DISEASE, UNSPECIFIED Attending: JUAN ALBERTO CONTRERAS Current LOS: 9 Anticipated DC Date: 06-21-2018 Planned Disposition: Home with Home Health Primary Insurance: [facility] MEDICARE SOLUTIONS PLANNED EXTERNAL PROVIDER: [facility] Discharge Planning Comments: CM RECEIVED HOME HEALTH ORDER. CM MET WITH PT AND SISTER IN ROOM TO DISCUSS DISCHARGE PLANNING AND NEEDS. SHANELLE DELONG provided verbal consent to discuss current and ongoing needs with/in the presence of SISTER / LAMAR SCHMIDT. PT REPORTS LIVING AT HOME INDEPENDENTLY WITH HER ADULT SISTER, TOM. PT HAS ROLLING WALKER THAT SHE HAS NOT BEEN USING. PT HAS NO MEDICAL EQUIPMENT PROVIDER PREFERENCE AND NO OUTSIDE SERVICES ASSISTING IN THE HOME. CM DISCUSSED AVAILABILITY OF HOME HEALTH, REHAB SERVICES AND MEDICAL EQUIPMENT. PT AND SISTER WANT HOME HEALTH WITH [facility], CHOICE SIGNED. PT'S SISTER HERE TO PICK PT UP FOR DISCHARGE HOME TODAY. IMPORTANT MESSAGE FROM MEDICARE PROVIDED AND EXPLAINED. CM CALLED [facility], , SPOKE TO DARYL AND PROVIDED REFERRAL INFORMATION. HOME HEALTH WILL ADMIT TOMORROW. CONTRACT ADMINISTRATION MANAGER NURSE NOTIFIED. CM FAXED REFERRAL TO [facility] AT [phone]. Staffing And Scheduling Coordinator: Octavio Mayes : Appended by Octavio Mayes on 06/21/2018 15:58 GUIDE [place]: PHYSICAL ADDRESS TO DISCHARGE HOME IS: [address] [place] [address]. OCTAVIO MAYES, CASE MANAGEMENT DCPIA - Discharge Planning Initial Assessment Updated by [email or web address]: Octavio Mayes on 06/21/18 3:50 pm * Is the patient Alert and Oriented? Yes * How many steps to enter\exit or inside your home? 5 W/RAIL * PCP DR. CRANE * Pharmacy [facility] * Preadmission Environment Home with Family * ADLs Independent * Equipment Nebulizer Rolling Walker * Other Equipment NO MEDICAL EQUIPMENT PROVIDER PREFERENCE * List name and contact numbers for known caregivers / representatives who currently or will assist patient after discharge: TOM SCHMIDT, /POA, * Verbal permission to speak to the caregivers and representatives has been obtained from the patient. Yes * Community resources currently utilized None * Please name any agencies selected above. NONE * Additional services required to return to the preadmission environment? Yes * Can the patient safely return to the preadmission environment? Yes * Has this patient been hospitalized within the prior 30 days at any hospital? No Coverage Notice Reviewer: [id number] Amanda Mayes Notice Issued Date-Time: 06/21/2018 15:00 Notice Type: IM Discharge Notice Notice Delivered To: Family Member Relationship to Patient: Digital Cartographer Name: TOM SCHMIDT Delivery Method: HAND - Hand Delivered Anastasiia Days: Prior Verbal Notification: Recipient Understood Notice: Yes Recipient Signature: Yes Med Rec Note Co-signed by Attending: Coverage Notice Comment: Reviewer: [email or web address] Amanda Mayes Notice Issued Date-Time: 06/21/2018 15:00 Notice Type: Patient Choice Letter Notice Delivered To: Family Member Relationship to Patient: Digital Cartographer Name: TOM SCHMIDT Delivery Method: HAND - Hand Delivered Anastasiia Days: Prior Verbal Notification: Recipient Understood Notice: Yes Recipient Signature: Yes Med Rec Note Co-signed by Attending: Coverage Notice Comment: [facility] Last DP export: 06/21/18 2:51 Patient Name: SHANELLE DELONG Page [phone] at 1605 All edits/amendments must be made on the electronic document DICTATION DATE: 06/21/181604 FLOOR SANDING MACHINE OPERATOR: DAMIR 06/21/181604 RPT#: [id number] NC DATE: STATUS: ADM IN [facility] [address] [place] [address] END OF REPORT
--- NOTE | 2018-06-21 16:42 | NUR ---
CALL REGARDING LUNA. PLAN TO DC HOME WITH LUNA DUE TO URINARY RETENTION. CONTINUE WITH DISCHARGE PLANNING.
--- NOTE | 2018-06-21 16:56 | MORECARE ---
CASE MANAGEMENT DISCHARGE SUMMARY PATIENT: SHANELLE DELONG UNIT: [id number] ADM DATE: 06/12/18 AGE: 52 : [birth year] SEX: F ROOM/BED: D.8780 AUTHOR: BHAVNA,DOC PHYSICIAN: REFERRING PHYSICIAN: JUAN ALBERTO CONTRERAS MD DATE OF SERVICE: 06/21/18 Discharge Plan Patient Name: SHANELLE DELONG Facility: [facility]:[place] : 1965 Planned Disposition: Home with Home Health Anticipated Discharge Date: 06/21/18 Discharge Date: Expected LOS: 9 Initial Reviewer: [id number] Initial Review Date: 06/21/2018 Generated: 06/21/18 5:56 pm Comments DCP- Discharge Planning Updated by [email or web address]: Octavio Mayes on 06/21/18 2:[address] Patient Name: SHANELLE DELONG Admission Status: Elective Accout number: [id number] Admission Date: 06-12-2018 : 1965 Admission Diagnosis:INFLAMMATORY LIVER DISEASE, UNSPECIFIED Attending: JUAN ALBERTO CONTRERAS Current LOS: 9 Anticipated DC Date: 06-21-2018 Planned Disposition: Home with Home Health Primary Insurance: [facility] MEDICARE SOLUTIONS PLANNED EXTERNAL PROVIDER: [facility] Discharge Planning Comments: CM RECEIVED HOME HEALTH ORDER. CM MET WITH PT AND SISTER IN ROOM TO DISCUSS DISCHARGE PLANNING AND NEEDS. SHANELLE DELONG provided verbal consent to discuss current and ongoing needs with/in the presence of SISTER / LAMAR SCHMIDT. PT REPORTS LIVING AT HOME INDEPENDENTLY WITH HER ADULT SISTER, TOM. PT HAS ROLLING WALKER THAT SHE HAS NOT BEEN USING. PT HAS NO MEDICAL EQUIPMENT PROVIDER PREFERENCE AND NO OUTSIDE SERVICES ASSISTING IN THE HOME. CM DISCUSSED AVAILABILITY OF HOME HEALTH, REHAB SERVICES AND MEDICAL EQUIPMENT. PT AND SISTER WANT HOME HEALTH WITH [facility], CHOICE SIGNED. PT'S SISTER HERE TO PICK PT UP FOR DISCHARGE HOME TODAY. IMPORTANT MESSAGE FROM MEDICARE PROVIDED AND EXPLAINED. CM CALLED [facility], , SPOKE TO DARYL AND PROVIDED REFERRAL INFORMATION. HOME HEALTH WILL ADMIT TOMORROW. AUTO ENGINE MECHANIC NURSE NOTIFIED. CM FAXED REFERRAL TO [facility] AT [phone]. Exercise Science Internship: Octavio Mayes : Appended by Octavio Mayes on 06/21/2018 15:58 DATA ENTRY PROCESSOR: PHYSICAL ADDRESS TO DISCHARGE HOME IS: [address], [place]. [address]. OCTAVIO MAYES, CASE MANAGEMENT DCPIA - Discharge Planning Initial Assessment Updated by [email or web address]: Octavio Mayes on 06/21/18 3:50 pm * Is the patient Alert and Oriented? Yes * How many steps to enter\exit or inside your home? 5 W/RAIL * PCP DR. CRANE * Pharmacy [facility] * Preadmission Environment Home with Family * ADLs Independent * Equipment Nebulizer Rolling Walker * Other Equipment NO MEDICAL EQUIPMENT PROVIDER PREFERENCE * List name and contact numbers for known caregivers / representatives who currently or will assist patient after discharge: SISTER ELAM/POA, * Verbal permission to speak to the caregivers and representatives has been obtained from the patient. Yes * Community resources currently utilized None * Please name any agencies selected above. NONE * Additional services required to return to the preadmission environment? Yes * Can the patient safely return to the preadmission environment? Yes * Has this patient been hospitalized within the prior 30 days at any hospital? No External Providers External Provider: OTHER-OTHER Next Contact Date: 06/21/2018 Service Request Date: Service Type: Resolution: Reviewer: Comments: Coverage Notice Reviewer: [id number] Amanda Mayes Notice Issued Date-Time: 06/21/2018 15:00 Notice Type: IM Discharge Notice Notice Delivered To: Family Member Relationship to Patient: Sister Production Analyst Name: TOM SCHMIDT Delivery Method: HAND - Hand Delivered Anastasiia Days: Prior Verbal Notification: Recipient Understood Notice: Yes Recipient Signature: Yes Med Rec Note Co-signed by Attending: Coverage Notice Comment: Reviewer: [id number] Amanda Mayes Notice Issued Date-Time: 06/21/2018 15:00 Notice Type: Patient Choice Letter Notice Delivered To: Family Member Relationship to Patient: Production Analyst Name: TOM SCHMIDT Delivery Method: HAND - Hand Delivered Anastasiia Days: Prior Verbal Notification: Recipient Understood Notice: Yes Recipient Signature: Yes Med Rec Note Co-signed by Attending: Coverage Notice Comment: [facility] Last DP export: 06/21/18 3:05 Patient Name: SHANELLE DELONG Page 77569 at 1656 All edits/amendments must be made on the electronic document DICTATION DATE: 06/21/181655 FIELD OPERATIONS FARM MANAGER: DAMIR 06/21/181655 RPT#: [id number] DC DATE: STATUS: ADM IN [facility] [address] [place] [address] END OF REPORT
--- NOTE | 2018-06-21 17:06 | MORECARE ---
CASE MANAGEMENT DISCHARGE SUMMARY PATIENT: SHANELLE DELONG UNIT: [id number] ADM DATE: 06/12/18 AGE: 52 : 69 SEX: F ROOM/BED: D.2112 AUTHOR: BHAVNA,DOC PHYSICIAN: REFERRING PHYSICIAN: JUAN ALBERTO CONTRERAS MD DATE OF SERVICE: 06/21/18 Discharge Plan Patient Name: SHANELLE DELONG Facility: [facility]:[place] : 1965 Planned Disposition: Home with Home Health Anticipated Discharge Date: 06/21/18 Discharge Date: Expected LOS: 9 Initial Reviewer: [id number] Initial Review Date: 06/21/2018 Generated: 06/21/18 6:06 pm Comments DCP- Discharge Planning Updated by [id number]: Octavio Mayes on 06/21/18 3:[address] Patient Name: SHANELLE DELONG Encounter No: [id number] : 1965 Primary Insurance: [facility] MEDICARE SOLUTIONS Anticipated DC Date: 06-21-2018 Planned Disposition: Home with Home Health External Planned Provider: [facility] DCP follow-up note: GUS RECEIVED CALL FROM DR CRANE'S OFFICE, SPOKE TO NAVEEN WHO REPORTS RECEIVING REQUEST FOR HOME HEALTH ORDERS AND WANTED TO KNOW WHAT ELSE WAS NEEDED OTHER THAN LABS THEY WOULD BE ABLE TO DRAW IN OFFICE; GUS EXPLAINED POSSIBLE NEED OF PHYSICAL THERAPY AND FAMILY REQUEST FOR AIDE TO ASSIST WITH BATH. TYRONE REQUESTED RECORDS BE FAXED TO DR. CRANE. TELEPHONE [phone] FAX [phone] GUS FAXED RECORDS REQUESTED TO ASSIST WITH HOME HEALTH ARRANAGMENT AND FOLLOW UP WITH PRIMARY CARE DOCTOR. Octavio Mayes CASE MANAGEMENT DCP- Discharge Planning Updated by [id number]: Octavio Mayes on 06/21/18 2:[address] Patient Name: SHANELLE DELONG Admission Status: Elective Accout number: [id number] Admission Date: 06-12-2018 : 1965 Admission Diagnosis:INFLAMMATORY LIVER DISEASE, UNSPECIFIED Attending: JUAN ALBERTO CONTRERAS Current LOS: 9 Anticipated DC Date: 06-21-2018 Planned Disposition: Home with Home Health Primary Insurance: [facility] MEDICARE SOLUTIONS PLANNED EXTERNAL PROVIDER: [facility] Discharge Planning Comments: CM RECEIVED HOME HEALTH ORDER. CM MET WITH PT AND SISTER IN ROOM TO DISCUSS DISCHARGE PLANNING AND NEEDS. SHANELLE DELONG provided verbal consent to discuss current and ongoing needs with/in the presence of SISTER / POA TOM SCHMIDT. PT REPORTS LIVING AT HOME INDEPENDENTLY WITH HER ADULT SISTER, TOM. PT HAS ROLLING WALKER THAT SHE HAS NOT BEEN USING. PT HAS NO MEDICAL EQUIPMENT PROVIDER PREFERENCE AND NO OUTSIDE SERVICES ASSISTING IN THE HOME. CM DISCUSSED AVAILABILITY OF HOME HEALTH, REHAB SERVICES AND MEDICAL EQUIPMENT. PT AND SISTER WANT HOME HEALTH WITH [facility], CHOICE SIGNED. PT'S SISTER HERE TO PICK PT UP FOR DISCHARGE HOME TODAY. IMPORTANT MESSAGE FROM MEDICARE PROVIDED AND EXPLAINED. CM CALLED [facility], , SPOKE TO DARYL AND PROVIDED REFERRAL INFORMATION. HOME HEALTH WILL ADMIT TOMORROW. DIVISION OPERATIONS MANAGER NURSE NOTIFIED. CM FAXED REFERRAL TO [facility] AT [phone]. Rn Cardiac Cath: Octavio Mayes : Appended by Octavio Mayes on 06/21/2018 15:58 BREAST SPLITTER: PHYSICAL ADDRESS TO DISCHARGE HOME IS: [address] [place] [address]. OCTAVIO MAYES, CASE MANAGEMENT DCPIA - Discharge Planning Initial Assessment Updated by [id number]: Octavio Mayes on 06/21/18 3:50 pm * Is the patient Alert and Oriented? Yes * How many steps to enter\exit or inside your home? 5 W/RAIL * PCP DR. CRANE * Pharmacy [facility] * Preadmission Environment Home with Family * ADLs Independent * Equipment Nebulizer Rolling Walker * Other Equipment NO MEDICAL EQUIPMENT PROVIDER PREFERENCE * List name and contact numbers for known caregivers / representatives who currently or will assist patient after discharge: TOM SCHMIDT, SISTER/POA, * Verbal permission to speak to the caregivers and representatives has been obtained from the patient. Yes * Community resources currently utilized None * Please name any agencies selected above. NONE * Additional services required to return to the preadmission environment? Yes * Can the patient safely return to the preadmission environment? Yes * Has this patient been hospitalized within the prior 30 days at any hospital? No Coverage Notice Reviewer: [id number] - Octavio Mayes Notice Issued Date-Time: 06/21/2018 15:00 Notice Type: IM Discharge Notice Notice Delivered To: Family Member Relationship to Patient: Sister Key Entry Operator Name: TOM SCHMIDT Delivery Method: HAND - Hand Delivered Anastasiia Days: Prior Verbal Notification: Recipient Understood Notice: Yes Recipient Signature: Yes Med Rec Note Co-signed by Attending: Coverage Notice Comment: Reviewer: [id number] Amanda Mayes Notice Issued Date-Time: 06/21/2018 15:00 Notice Type: Patient Choice Letter Notice Delivered To: Family Member Relationship to Patient: Sister Key Entry Operator Name: TOM SCHMIDT Delivery Method: HAND - Hand Delivered Anastasiia Days: Prior Verbal Notification: Recipient Understood Notice: Yes Recipient Signature: Yes Med Rec Note Co-signed by Attending: Coverage Notice Comment: [facility] Last DP export: 06/21/18 3:56 Patient Name: SHANELLE DELONG Page 07553 at 1706 All edits/amendments must be made on the electronic document DICTATION DATE: 06/21/181704 ATTENDANT LODGING FACILITIES: DAMIR 06/21/181704 RPT#: [id number] DC DATE: STATUS: ADM IN [facility] [address] [place] [address] END OF REPORT
--- NOTE | 2018-06-21 17:26 | NUR ---
ALERT AND ORIENTED X4. DC RT GROIN CVL TIP INTACT. DISCHARGE INSTRUCTIONS GIVEN VERBALLY AND WRITTEN. DISCHARGE PAPERS SIGNED ON CHART. WHEN ASSISTING UP IN BED, RT GROIN DRESSING BLEEDING. APPLY PRESSURE TO RT GROIN. BLOOD GUSHES OUT OF DRESSING. HOLD PRESSURE FOR 10 MINUTES. PRESSURE DRESSING APPLIED. SALINE BAG APPLIED FOR PRESSURE. NOTIFY . PLAN TO HOLD DISCHARGE UNTIL 06/22/18 PER . CONTINUE PLAN OF CARE AND SAFETY PRECAUTIONS.
--- NOTE | 2018-06-21 18:21 | NUR ---
LINENS CHANGE. RT GROIN DRESSING CLEAN DRY INTACT. FREE FROM BLEEDING. PRESSURE BAG REMAINS ON RT GROIN. RAISE HOB 40 DEGREES TO EAT. CONTINUE TO MONITOR.
[2018-06-21 20:00] VITALS: BP 105/75
--- NOTE | 2018-06-21 20:15 | NUR ---
REPORT RECEIVED, CARE ASSUMED. INTRODUCED SELF TO PT. REMOVED BAG FROM GROIN AREA, NO SIGNS OF BLEEDING NOTED AT THIS TIME. INITIAL ASSESSMENT COMPLETED, SEE FLOWSHEET. NO SIGNS OF ACUTE DISTRESS, WILL CONTINUE TO MONITOR.
[2018-06-22] VITALS: BP 110/71
[2018-06-22 04:00] VITALS: BP 98/70
[2018-06-22 04:23] LABS: BASOPHILS 0.4 % (0-2); EOSINOPHILS 2.9 % (0-7); HEMOGLOBIN 10.9 g/dL (12-16); IMMATURE GRANULOCYTES 0.5 % (0-5); LYMPHOCYTES 15.4 % (15-50); MCH 29.6 pg (26.0-34.0); MCHC 32.1 g/dL (31.0-37.0); MCV 92.4 fL (80.0-100.0); MONOCYTES 11.6 % (2-11); NEUTROPHILS 69.2 % (40-80); RBC 3.68 10x6/uL (4.00-5.40); RDW 18.8 % (11.5-14.5); WBC 11.1 10x3/uL (4.8-10.8)
[2018-06-22 04:29] LABS: PLATELET COUNT 194 10x3/uL (130-400)
[2018-06-22 04:33] LABS: INR 1.32 (0.85-1.17); PROTIME 15.9 SECONDS (11.6-15.0)
[2018-06-22 04:46] LABS: ALBUMIN 2.8 g/dL (3.4-5.0); ANION GAP 14.3 mmol/L (8-16); BILIRUBIN - TOTAL 1.05 mg/dL (0.2-1.3); CALCIUM 9.1 mg/dL (8.5-10.1); CARBON DIOXIDE 26.8 mmol/L (21.0-32.0); CREATININE - SERUM 1.1 mg/dL (0.6-1.3); MAGNESIUM - SERUM 1.9 mg/dL (1.8-2.4); POTASSIUM - SERUM 4.1 mmol/L (3.5-5.1); PROTEIN - SERUM 6.8 g/dL (6.4-8.2)
--- NOTE | 2018-06-22 07:20 | NUR ---
0720 INITIAL ROUNDING, PATIENT SITTING ON THE SIDE OF THE BED WITH HER SISTER AT THE BEDSIDE, PATIENT WAITING TO BE DISCHARGED, WAITING FOR BREAKFAST TRAY AND TO BE GIVEN MORNING MEDS.
--- NOTE | 2018-06-22 08:20 | NUR ---
MORNING MEDS GIVEN, PATIENT ASSESSED. ASSISTED THE PATIENT TO DRESS, PACK PERSONAL BELONGINGS. SISTER TO DRIVE THE PATIENT HOME.
--- NOTE | 2018-06-22 08:50 | MORECARE ---
CASE MANAGEMENT DISCHARGE SUMMARY PATIENT: SHANELLE DELONG UNIT: [id number] ADM DATE: 06/12/18 AGE: 52 : 69 SEX: F ROOM/BED: D.2112 AUTHOR: BHAVNA,DOC PHYSICIAN: REFERRING PHYSICIAN: JUAN ALBERTO CONTRERAS MD DATE OF SERVICE: 06/22/18 Discharge Plan Patient Name: SHANELLE DELONG Facility: [facility]:[place] : 1965 Planned Disposition: Home with Home Health Anticipated Discharge Date: 06/22/18 Discharge Date: Expected LOS: 10 Initial Reviewer: [id number] Initial Review Date: 06/21/2018 Generated: 06/22/18 9:50 am Comments DCP- Discharge Planning Updated by [id number]: Octavio Mayes on 06/21/18 3:[address] Patient Name: SHANELLE DELONG Encounter No: [id number] : 1965 Primary Insurance: [facility] MEDICARE SOLUTIONS Anticipated DC Date: 06-21-2018 Planned Disposition: Home with Home Health External Planned Provider: [facility] DCP follow-up note: GUS RECEIVED CALL FROM DR CRANE'S OFFICE, SPOKE TO NAVEEN WHO REPORTS RECEIVING REQUEST FOR HOME HEALTH ORDERS AND WANTED TO KNOW WHAT ELSE WAS NEEDED OTHER THAN LABS THEY WOULD BE ABLE TO DRAW IN OFFICE; GUS EXPLAINED POSSIBLE NEED OF PHYSICAL THERAPY AND FAMILY REQUEST FOR AIDE TO ASSIST WITH BATH. TYRONE REQUESTED RECORDS BE FAXED TO DR. CRANE. TELEPHONE [phone] FAX [phone] GUS FAXED RECORDS REQUESTED TO ASSIST WITH HOME HEALTH ARRANAGMENT AND FOLLOW UP WITH PRIMARY CARE DOCTOR. Octavio Mayes CASE MANAGEMENT DCP- Discharge Planning Updated by [id number]: Octavio Mayes on 06/21/18 2:[address] Patient Name: SHANELLE DELONG Admission Status: Elective Accout number: [id number] Admission Date: 06-12-2018 : 1965 Admission Diagnosis:INFLAMMATORY LIVER DISEASE, UNSPECIFIED Attending: JUAN ALBERTO CONTRERAS Current LOS: 9 Anticipated DC Date: 06-21-2018 Planned Disposition: Home with Home Health Primary Insurance: [facility] MEDICARE SOLUTIONS PLANNED EXTERNAL PROVIDER: [facility] Discharge Planning Comments: CM RECEIVED HOME HEALTH ORDER. CM MET WITH PT AND SISTER IN ROOM TO DISCUSS DISCHARGE PLANNING AND NEEDS. SHANELLE DELONG provided verbal consent to discuss current and ongoing needs with/in the presence of SISTER / POA TOM SCHMIDT. PT REPORTS LIVING AT HOME INDEPENDENTLY WITH HER ADULT SISTER, TOM. PT HAS ROLLING WALKER THAT SHE HAS NOT BEEN USING. PT HAS NO MEDICAL EQUIPMENT PROVIDER PREFERENCE AND NO OUTSIDE SERVICES ASSISTING IN THE HOME. CM DISCUSSED AVAILABILITY OF HOME HEALTH, REHAB SERVICES AND MEDICAL EQUIPMENT. PT AND SISTER WANT HOME HEALTH WITH [facility], CHOICE SIGNED. PT'S SISTER HERE TO PICK PT UP FOR DISCHARGE HOME TODAY. IMPORTANT MESSAGE FROM MEDICARE PROVIDED AND EXPLAINED. CM CALLED [facility], , SPOKE TO DARYL AND PROVIDED REFERRAL INFORMATION. HOME HEALTH WILL ADMIT TOMORROW. MANAGER FLOOR NURSE NOTIFIED. CM FAXED REFERRAL TO [facility] AT [phone]. Ferryboat Deckhand: Octavio Mayes : Appended by Octavio Maeys on 06/21/2018 15:58 MACHINE CLERICAL VERIFIER: PHYSICAL ADDRESS TO DISCHARGE HOME IS: [address] [place] [address]. OCTAVIO MAYES, CASE MANAGEMENT DCPIA - Discharge Planning Initial Assessment Updated by [id number]: Octavio Mayes on 06/21/18 3:50 pm * Is the patient Alert and Oriented? Yes * How many steps to enter\exit or inside your home? 5 W/RAIL * PCP DR. CRANE * Pharmacy [facility] * Preadmission Environment Home with Family * ADLs Independent * Equipment Nebulizer Rolling Walker * Other Equipment NO MEDICAL EQUIPMENT PROVIDER PREFERENCE * List name and contact numbers for known caregivers / representatives who currently or will assist patient after discharge: TOM SCHMIDT, SISTER/POA, * Verbal permission to speak to the caregivers and representatives has been obtained from the patient. Yes * Community resources currently utilized None * Please name any agencies selected above. NONE * Additional services required to return to the preadmission environment? Yes * Can the patient safely return to the preadmission environment? Yes * Has this patient been hospitalized within the prior 30 days at any hospital? No Coverage Notice Reviewer: [id number] - Octavio Mayes Notice Issued Date-Time: 06/21/2018 15:00 Notice Type: IM Discharge Notice Notice Delivered To: Family Member Relationship to Patient: Sister Household Assistant Name: TOM SCHMIDT Delivery Method: HAND - Hand Delivered Anastasiia Days: Prior Verbal Notification: Recipient Understood Notice: Yes Recipient Signature: Yes Med Rec Note Co-signed by Attending: Coverage Notice Comment: Reviewer: [id number] Amanda Mayes Notice Issued Date-Time: 06/21/2018 15:00 Notice Type: Patient Choice Letter Notice Delivered To: Family Member Relationship to Patient: Sister Household Assistant Name: TOM SCHMIDT Delivery Method: HAND - Hand Delivered Anastasiia Days: Prior Verbal Notification: Recipient Understood Notice: Yes Recipient Signature: Yes Med Rec Note Co-signed by Attending: Coverage Notice Comment: [facility] Last DP export: 06/21/18 4:06 Patient Name: SHANELLE DELONG Page 12552 at 0850 All edits/amendments must be made on the electronic document DICTATION DATE: 06/22/18 0850 SUPERVISOR PAIRING AND INSPECTING: DAMIR 06/22/18 0850 RPT#: [id number] DC DATE: STATUS: ADM IN [facility] [address] [place] [address] END OF REPORT
--- NOTE | 2018-06-22 08:58 | MORECARE ---
CASE MANAGEMENT DISCHARGE SUMMARY PATIENT: SHANELLE DELONG UNIT: [id number] ADM DATE: 06/12/18 AGE: 52 : 69 SEX: F ROOM/BED: D.7872 AUTHOR: BHAVNA,DOC PHYSICIAN: REFERRING PHYSICIAN: JUAN ALBERTO CONTRERAS MD DATE OF SERVICE: 06/22/18 Discharge Plan Patient Name: SHANELLE DELONG Facility: [facility]:[place] : 1965 Planned Disposition: Home with Home Health Anticipated Discharge Date: 06/22/18 Discharge Date: Expected LOS: 10 Initial Reviewer: [id number] Initial Review Date: 06/21/2018 Generated: 06/22/18 9:58 am Comments DCP- Discharge Planning Updated by [id number]: Octavio Mayes on 06/22/18 7:[address] Patient Name: SHANELLE DELONG Encounter No: [id number] : 1965 Primary Insurance: [facility] MEDICARE SOLUTIONS Anticipated DC Date: 06-22-2018 Planned Disposition: Home with Home Health External Planned Provider: [facility] DCP follow-up note: CM REVIEWED CHART, PT DID NOT DISCHARGE YESTERDAY DUE TO BLEEDING. CM CALLED [facility], , SPOKE TO CLAUDIA AND PROVIDED UPDATED INFORMATION. CM FAXED NURSES NOTES TO [facility] AT [phone]. WHEN DISCHARGED HOME, NOTIFY [facility], . Octavio Mayes, CASE MANAGEMENT DCP- Discharge Planning Updated by [id number]: Octavio Mayes on 06/21/18 3:[address] Patient Name: SHANELLE DELONG Encounter No: [id number] : 1965 Primary Insurance: [facility] MEDICARE SOLUTIONS Anticipated DC Date: 06-21-2018 Planned Disposition: Home with Home Health External Planned Provider: [facility] DCP follow-up note: CM RECEIVED CALL FROM DR CRANE'S OFFICE, SPOKE TO NAVEEN WHO REPORTS RECEIVING REQUEST FOR HOME HEALTH ORDERS AND WANTED TO KNOW WHAT ELSE WAS NEEDED OTHER THAN LABS THEY WOULD BE ABLE TO DRAW IN OFFICE; CM EXPLAINED POSSIBLE NEED OF PHYSICAL THERAPY AND FAMILY REQUEST FOR AIDE TO ASSIST WITH BATH. TYRONE REQUESTED RECORDS BE FAXED TO DR. CRANE. TELEPHONE [phone] FAX [phone] CM FAXED RECORDS REQUESTED TO ASSIST WITH HOME HEALTH ARRANAGMENT AND FOLLOW UP WITH PRIMARY CARE DOCTOR. Octavio Mayes CASE MANAGEMENT DCP- Discharge Planning Updated by [email or web address]: Octavio Mayes on 06/21/18 2:[address] Patient Name: SHANELLE DELONG Admission Status: Elective Accout number: [id number] Admission Date: 06-12-2018 : 1965 Admission Diagnosis:INFLAMMATORY LIVER DISEASE, UNSPECIFIED Attending: JUAN ALBERTO CONTRERAS Current LOS: 9 Anticipated DC Date: 06-21-2018 Planned Disposition: Home with Home Health Primary Insurance: [facility] MEDICARE SOLUTIONS PLANNED EXTERNAL PROVIDER: [facility] Discharge Planning Comments: CM RECEIVED HOME HEALTH ORDER. CM MET WITH PT AND SISTER IN ROOM TO DISCUSS DISCHARGE PLANNING AND NEEDS. SHANELLE DELONG provided verbal consent to discuss current and ongoing needs with/in the presence of SISTER / LAMAR SCHMIDT. PT REPORTS LIVING AT HOME INDEPENDENTLY WITH HER ADULT SISTER, TOM. PT HAS ROLLING WALKER THAT SHE HAS NOT BEEN USING. PT HAS NO MEDICAL EQUIPMENT PROVIDER PREFERENCE AND NO OUTSIDE SERVICES ASSISTING IN THE HOME. CM DISCUSSED AVAILABILITY OF HOME HEALTH, REHAB SERVICES AND MEDICAL EQUIPMENT. PT AND SISTER WANT HOME HEALTH WITH [facility], CHOICE SIGNED. PT'S SISTER HERE TO PICK PT UP FOR DISCHARGE HOME TODAY. IMPORTANT MESSAGE FROM MEDICARE PROVIDED AND EXPLAINED. CM CALLED [facility], , SPOKE TO DARYL AND PROVIDED REFERRAL INFORMATION. HOME HEALTH WILL ADMIT TOMORROW. CATERING ASSISTANT NURSE NOTIFIED. CM FAXED REFERRAL TO [facility] AT [phone]. Sign Shop Supervisor: Octavio Mayes : Appended by Octavio Mayes on 06/21/2018 15:58 BUSINESS EMPLOYMENT SPECIALIST: PHYSICAL ADDRESS TO DISCHARGE HOME IS: [address] [place] [address]. OCTAVIO MAYES CASE MANAGEMENT DCPIA - Discharge Planning Initial Assessment Updated by [id number]: Octavio Mayes on 06/21/18 3:50 pm * Is the patient Alert and Oriented? Yes * How many steps to enter\exit or inside your home? 5 W/RAIL * PCP DR. CRANE * Pharmacy [facility] * Preadmission Environment Home with Family * ADLs Independent * Equipment Nebulizer Rolling Walker * Other Equipment NO MEDICAL EQUIPMENT PROVIDER PREFERENCE * List name and contact numbers for known caregivers / representatives who currently or will assist patient after discharge: TOM SCHMIDT, /LAMAR, * Verbal permission to speak to the caregivers and representatives has been obtained from the patient. Yes * Community resources currently utilized None * Please name any agencies selected above. NONE * Additional services required to return to the preadmission environment? Yes * Can the patient safely return to the preadmission environment? Yes * Has this patient been hospitalized within the prior 30 days at any hospital? No Coverage Notice Reviewer: [email or web address] Mayes Notice Issued Date-Time: 06/21/2018 15:00 Notice Type: IM Discharge Notice Notice Delivered To: Family Member Relationship to Patient: Fire Extinguisher Charger Name: TOM SCHMIDT Delivery Method: HAND - Hand Delivered Anastasiia Days: Prior Verbal Notification: Recipient Understood Notice: Yes Recipient Signature: Yes Med Rec Note Co-signed by Attending: Coverage Notice Comment: Reviewer: [id number] Mayes Notice Issued Date-Time: 06/21/2018 15:00 Notice Type: Patient Choice Letter Notice Delivered To: Family Member Relationship to Patient: Fire Extinguisher Charger Name: TOM SCHMIDT Delivery Method: HAND - Hand Delivered Anastasiia Days: Prior Verbal Notification: Recipient Understood Notice: Yes Recipient Signature: Yes Med Rec Note Co-signed by Attending: Coverage Notice Comment: [facility] Last DP export: 06/22/18 7:50 Patient Name: SHANELLE DELONG Page 06958 at 0858 All edits/amendments must be made on the electronic document DICTATION DATE: 06/22/18857 PRESIDENT PRACTICING UROLOGIST: DAMIR 06/22/18857 RPT#: [id number] DC DATE: STATUS: ADM IN [facility] [address] [place] [address] END OF REPORT
--- NOTE | 2018-06-22 09:03 | NUR ---
I CALLED THE SUPERVISOR COMPRESSED YEAST FOR WHEELCHAIR TO BE DISCHARGED.
--- NOTE | 2018-06-22 14:47 | MORECARE ---
CASE MANAGEMENT DISCHARGE SUMMARY PATIENT: SHANELLE DELONG UNIT: [id number] ADM DATE: 06/12/18 AGE: 52 : [birth year] SEX: F ROOM/BED: D.2112 AUTHOR: BHAVNA,DOC PHYSICIAN: REFERRING PHYSICIAN: JUAN ALBERTO CONTRERAS MD DATE OF SERVICE: 06/22/18 Discharge Plan Patient Name: SHANELLE DELONG Facility: [facility]:[place] : 1965 Planned Disposition: Home with Home Health Anticipated Discharge Date: 06/22/18 Discharge Date: 06/22/2018 Expected LOS: 10 Initial Reviewer: [id number] Initial Review Date: 06/21/2018 Generated: 06/22/18 3:47 pm Comments DCP- Discharge Planning Updated by NORIS: Octavio Mayes on 06/22/18 1:[address] Patient Name: SHANELLE DELONG Encounter No: [id number] : 1965 Primary Insurance: [facility] [employer] Anticipated DC Date: 06-22-2018 Planned Disposition: Home with Home Health External Planned Provider: [facility] DCP follow-up note: CM REVIEWED CHART, PT DID NOT DISCHARGE YESTERDAY DUE TO BLEEDING. CM CALLED [facility], , SPOKE TO [facility] AND PROVIDED UPDATED INFORMATION. CM FAXED NURSES NOTES TO [facility] AT [phone]. WHEN DISCHARGED HOME, NOTIFY [facility], . Octavio Mayes, CASE MANAGEMENT Appended by Octavio Mayes on 06/22/2018 14:38 BODY JOINER: PT DISCHARGED HOME, CM NOTIFIED MELODIE OF [facility], . ROSALIND LEI DCP- Discharge Planning Updated by [id number]: Octavio Mayes on 06/21/18 3:[address] Patient Name: SHANELLE DELONG Encounter No: [id number] : 1965 Primary Insurance: [facility] [employer] Anticipated DC Date: 06-21-2018 Planned Disposition: Home with Home Health External Planned Provider: [facility] DCP follow-up note: CM RECEIVED CALL FROM DR CRANE'S OFFICE, SPOKE TO NAVEEN WHO REPORTS RECEIVING REQUEST FOR HOME HEALTH ORDERS AND WANTED TO KNOW WHAT ELSE WAS NEEDED OTHER THAN LABS THEY WOULD BE ABLE TO DRAW IN OFFICE; CM EXPLAINED POSSIBLE NEED OF PHYSICAL THERAPY AND FAMILY REQUEST FOR AIDE TO ASSIST WITH BATH. TYRONE REQUESTED RECORDS BE FAXED TO DR. CRANE. TELEPHONE [phone] FAX [phone] CM FAXED RECORDS REQUESTED TO ASSIST WITH HOME HEALTH ARRANAGMENT AND FOLLOW UP WITH PRIMARY CARE DOCTOR. Octavio Mayes, CASE MANAGEMENT DCP- Discharge Planning Updated by [id number]: Octavio Mayes on 06/21/18 2:[address] Patient Name: SHANELLE DELONG Admission Status: Elective Accout number: [id number] Admission Date: 06-12-2018 : 1965 Admission Diagnosis:INFLAMMATORY LIVER DISEASE, UNSPECIFIED Attending: JUAN ALBERTO CONTRERAS Current LOS: 9 Anticipated DC Date: 06-21-2018 Planned Disposition: Home with Home Health Primary Insurance: [facility] [employer] PLANNED EXTERNAL PROVIDER: [facility] Discharge Planning Comments: CM RECEIVED HOME HEALTH ORDER. CM MET WITH PT AND SISTER IN ROOM TO DISCUSS DISCHARGE PLANNING AND NEEDS. SHANELLE DELONG provided verbal consent to discuss current and ongoing needs with/in the presence of SISTER / SHIRAA TOM SCHMIDT. PT REPORTS LIVING AT HOME INDEPENDENTLY WITH HER ADULT SISTER, TOM. PT HAS ROLLING WALKER THAT SHE HAS NOT BEEN USING. PT HAS NO MEDICAL EQUIPMENT PROVIDER PREFERENCE AND NO OUTSIDE SERVICES ASSISTING IN THE HOME. CM DISCUSSED AVAILABILITY OF HOME HEALTH, REHAB SERVICES AND MEDICAL EQUIPMENT. PT AND SISTER WANT HOME HEALTH WITH [facility], CHOICE SIGNED. PT'S SISTER HERE TO PICK PT UP FOR DISCHARGE HOME TODAY. IMPORTANT MESSAGE FROM MEDICARE PROVIDED AND EXPLAINED. CM CALLED [facility], , SPOKE TO DARYL AND PROVIDED REFERRAL INFORMATION. HOME HEALTH WILL ADMIT TOMORROW. CAP SIZER NURSE NOTIFIED. CM FAXED REFERRAL TO [facility] AT [phone]. Gold Layer: Octavio Mayes : Appended by Octavio Mayes on 06/21/2018 15:58 BODY JOINER: PHYSICAL ADDRESS TO DISCHARGE HOME IS: [address] [place] [address]. OCTAVIO MAYES, CASE MANAGEMENT DCPIA - Discharge Planning Initial Assessment Updated by NORIS: Octavio Mayes on 06/21/18 3:50 pm * Is the patient Alert and Oriented? Yes * How many steps to enter\exit or inside your home? 5 W/RAIL * PCP DR. CRANE * Pharmacy [facility] * Preadmission Environment Home with Family * ADLs Independent * Equipment Nebulizer Rolling Walker * Other Equipment NO MEDICAL EQUIPMENT PROVIDER PREFERENCE * List name and contact numbers for known caregivers / representatives who currently or will assist patient after discharge: TOM SCHMIDT, /POA, * Verbal permission to speak to the caregivers and representatives has been obtained from the patient. Yes * Community resources currently utilized None * Please name any agencies selected above. NONE * Additional services required to return to the preadmission environment? Yes * Can the patient safely return to the preadmission environment? Yes * Has this patient been hospitalized within the prior 30 days at any hospital? No Coverage Notice Reviewer: NORIS Mayes Notice Issued Date-Time: 06/21/2018 15:00 Notice Type: IM Discharge Notice Notice Delivered To: Family Member Relationship to Patient: Go Cart Mechanic Name: TOM SCHMIDT Delivery Method: HAND - Hand Delivered Anastasiia Days: Prior Verbal Notification: Recipient Understood Notice: Yes Recipient Signature: Yes Med Rec Note Co-signed by Attending: Coverage Notice Comment: Reviewer: NORIS Mayes Notice Issued Date-Time: 06/21/2018 15:00 Notice Type: Patient Choice Letter Notice Delivered To: Family Member Relationship to Patient: Go Cart Mechanic Name: TOM SCHMIDT Delivery Method: HAND - Hand Delivered Anastasiia Days: Prior Verbal Notification: Recipient Understood Notice: Yes Recipient Signature: Yes Med Rec Note Co-signed by Attending: Coverage Notice Comment: [facility] Last DP export: 06/22/18 7:58 Patient Name: SHANELLE DELONG Page [id number] at 1447 All edits/amendments must be made on the electronic document DICTATION DATE: 06/22/18 1446 SPEECH COACH: DAMIR 06/22/18 1446 RPT#: [id number] [place] DATE:06/22/18 STATUS: DIS IN [facility] [address] [place] [address] END OF REPORT
--- NOTE | 2018-06-25 09:31 | MORECARE ---
CASE MANAGEMENT DISCHARGE SUMMARY PATIENT: SHANELLE DELONG UNIT: [id number] ADM DATE: 06/12/18 AGE: 52 : 69 SEX: F ROOM/BED: D.2112 AUTHOR: BHAVNA,DOC PHYSICIAN: REFERRING PHYSICIAN: JUAN ALBERTO CONTRERAS MD DATE OF SERVICE: 06/25/18 Discharge Plan Patient Name: SHANELLE DELONG Facility: [facility]:[place] : 1965 Planned Disposition: Home with Home Health Anticipated Discharge Date: 06/22/18 Discharge Date: 06/22/2018 Expected LOS: 10 Initial Reviewer: [id number] Initial Review Date: 06/21/2018 Generated: 06/25/18 10:31 am Comments DCP- Discharge Planning Updated by NORIS: Octavio Mayes on 06/22/18 1:[address] Patient Name: SHANELLE DELONG Encounter No: [id number] : 1965 Primary Insurance: [facility] [employer] Anticipated DC Date: 06-22-2018 Planned Disposition: Home with Home Health External Planned Provider: [facility] DCP follow-up note: CM REVIEWED CHART, PT DID NOT DISCHARGE YESTERDAY DUE TO BLEEDING. CM CALLED [facility], , SPOKE TO [facility] AND PROVIDED UPDATED INFORMATION. CM FAXED NURSES NOTES TO [facility] AT [phone]. WHEN DISCHARGED HOME, NOTIFY [facility], . Octavio Mayes, CASE MANAGEMENT Appended by Octavio Mayes on 06/22/2018 14:38 SUTURE POLISHER: PT DISCHARGED HOME, CM NOTIFIED MELODIE OF [facility], . ROSALIND LEI DCP- Discharge Planning Updated by [id number]: Octavio Mayes on 06/21/18 3:[address] Patient Name: SHANELLE DELONG Encounter No: [id number] : 1965 Primary Insurance: [facility] [employer] Anticipated DC Date: 06-21-2018 Planned Disposition: Home with Home Health External Planned Provider: [facility] DCP follow-up note: CM RECEIVED CALL FROM DR CRANE'S OFFICE, SPOKE TO NAVEEN WHO REPORTS RECEIVING REQUEST FOR HOME HEALTH ORDERS AND WANTED TO KNOW WHAT ELSE WAS NEEDED OTHER THAN LABS THEY WOULD BE ABLE TO DRAW IN OFFICE; CM EXPLAINED POSSIBLE NEED OF PHYSICAL THERAPY AND FAMILY REQUEST FOR AIDE TO ASSIST WITH BATH. TYRONE REQUESTED RECORDS BE FAXED TO DR. CRANE. TELEPHONE [phone] FAX [phone] CM FAXED RECORDS REQUESTED TO ASSIST WITH HOME HEALTH ARRANAGMENT AND FOLLOW UP WITH PRIMARY CARE DOCTOR. Octavio Mayes, CASE MANAGEMENT DCP- Discharge Planning Updated by [id number]: Octavio Mayes on 06/21/18 2:[address] Patient Name: SHANELLE DELONG Admission Status: Elective Accout number: [id number] Admission Date: 06-12-2018 : 1965 Admission Diagnosis:INFLAMMATORY LIVER DISEASE, UNSPECIFIED Attending: JUAN ALBERTO CONTRERAS Current LOS: 9 Anticipated DC Date: 06-21-2018 Planned Disposition: Home with Home Health Primary Insurance: [facility] [employer] SOL[employer] PLANNED EXTERNAL PROVIDER: [facility] Discharge Planning Comments: CM RECEIVED HOME HEALTH ORDER. CM MET WITH PT AND SISTER IN ROOM TO DISCUSS DISCHARGE PLANNING AND NEEDS. SHANELLE DELONG provided verbal consent to discuss current and ongoing needs with/in the presence of SISTER / SHIRAA TOM SCHMIDT. PT REPORTS LIVING AT HOME INDEPENDENTLY WITH HER ADULT SISTER, TOM. PT HAS ROLLING WALKER THAT SHE HAS NOT BEEN USING. PT HAS NO MEDICAL EQUIPMENT PROVIDER PREFERENCE AND NO OUTSIDE SERVICES ASSISTING IN THE HOME. CM DISCUSSED AVAILABILITY OF HOME HEALTH, REHAB SERVICES AND MEDICAL EQUIPMENT. PT AND SISTER WANT HOME HEALTH WITH [facility], CHOICE SIGNED. PT'S SISTER HERE TO PICK PT UP FOR DISCHARGE HOME TODAY. IMPORTANT MESSAGE FROM MEDICARE PROVIDED AND EXPLAINED. CM CALLED [facility], , SPOKE TO DARYL AND PROVIDED REFERRAL INFORMATION. HOME HEALTH WILL ADMIT TOMORROW. SOAKING PITS SUPERVISOR NURSE NOTIFIED. CM FAXED REFERRAL TO [facility] AT [phone]. Prizer Hand: Octavio Mayes : Appended by Octavio Mayes on 06/21/2018 15:58 SUTURE POLISHER: PHYSICAL ADDRESS TO DISCHARGE HOME IS: [address] [place] [address]. OCTAVIO MAYES, CASE MANAGEMENT DCPIA - Discharge Planning Initial Assessment Updated by NORIS: Octavio Mayes on 06/21/18 3:50 pm * Is the patient Alert and Oriented? Yes * How many steps to enter\exit or inside your home? 5 W/RAIL * PCP DR. CRANE * Pharmacy [facility] * Preadmission Environment Home with Family * ADLs Independent * Equipment Nebulizer Rolling Walker * Other Equipment NO MEDICAL EQUIPMENT PROVIDER PREFERENCE * List name and contact numbers for known caregivers / representatives who currently or will assist patient after discharge: TOM SCHMIDT, /POA, * Verbal permission to speak to the caregivers and representatives has been obtained from the patient. Yes * Community resources currently utilized None * Please name any agencies selected above. NONE * Additional services required to return to the preadmission environment? Yes * Can the patient safely return to the preadmission environment? Yes * Has this patient been hospitalized within the prior 30 days at any hospital? No Coverage Notice Reviewer: NORIS Mayes Notice Issued Date-Time: 06/21/2018 15:00 Notice Type: IM Discharge Notice Notice Delivered To: Family Member Relationship to Patient: Catalyst Recovery Operator Name: TOM SCHMIDT Delivery Method: HAND - Hand Delivered Anastasiia Days: Prior Verbal Notification: Recipient Understood Notice: Yes Recipient Signature: Yes Med Rec Note Co-signed by Attending: Coverage Notice Comment: Reviewer: NORIS Mayes Notice Issued Date-Time: 06/21/2018 15:00 Notice Type: Patient Choice Letter Notice Delivered To: Family Member Relationship to Patient: Catalyst Recovery Operator Name: TOM SCHMIDT Delivery Method: HAND - Hand Delivered Anastasiia Days: Prior Verbal Notification: Recipient Understood Notice: Yes Recipient Signature: Yes Med Rec Note Co-signed by Attending: Coverage Notice Comment: [facility] Last DP export: 06/22/18 1:47 Patient Name: SHANELLE DELONG Page [id number] at 0931 All edits/amendments must be made on the electronic document DICTATION DATE: 06/25/18930 LEADERSHIP PROGRAM INTERNSHIP: DAMIR 06/25/18930 RPT#: [id number] DC DATE:06/22/18 STATUS: DIS IN [facility] [address] [place] [address] END OF REPORT
== END 2018-06-22 09:30 | disposition home health service (06) | DRG 441 ==
LOC: D.M2 19:49
PROVIDERS: Emergency Medicine; Family Medicine; Internal Medicine Cardiovascular Disease; Internal Medicine Gastroenterology; ADMIT Internal Medicine Nephrology
PROC: 06HM33Z Insertion of Infusion Device into Right Femoral Vein, Percutaneous Approach (ICD-10-PCS; principal; 2018-06-18)
PROC: B54BZZA Ultrasonography of Right Lower Extremity Veins, Guidance (ICD-10-PCS; 2018-06-18)
DX: K72.90 Hepatic failure, unspecified without coma (principal); I50.33 Acute on chronic diastolic (congestive) heart failure; I42.9 Cardiomyopathy, unspecified; R18.8 Other ascites; E87.1 Hypo-osmolality and hyponatremia; I13.0 Hypertensive heart and chronic kidney disease with heart failure and stage 1 through stage 4 chronic kidney disease, or unspecified chronic kidney disease; N17.9 Acute kidney failure, unspecified; D68.9 Coagulation defect, unspecified; K75.9 Inflammatory liver disease, unspecified; K76.1 Chronic passive congestion of liver; N18.9 Chronic kidney disease, unspecified; J44.9 Chronic obstructive pulmonary disease, unspecified; K21.9 Gastro-esophageal reflux disease without esophagitis; F32.9 Major depressive disorder, single episode, unspecified; F41.9 Anxiety disorder, unspecified; D69.6 Thrombocytopenia, unspecified; H91.90 Unspecified hearing loss, unspecified ear; I20.9 Angina pectoris, unspecified